=== PATIENT | female | born 1960 | race Caucasian/White ===

== ENCOUNTER 2023-07-23 13:08 | Outpatient (AMB) | payer MEDICARE, MEDICAID, SELFPAY ==
[2023-07-23 13:27] VITALS: BP 134/64; PULSE 78; RESP 16; O2SAT 97
--- NOTE | 2023-07-23 13:27 | A.OFFVIS_ITS ---
Intake Vital Signs 07/23/23 13:27 Weight 143 lb BP 134/64 Blood Pressure Location Lt brachial Position Sitting Respiration 16 Pulse 78 Pulse Source Pulse Oximeter Pulse Oximetry (%) 97 Oxygen Delivery Method Room Air Intake Visit Reasons: LEFT LUMBAR RADICULOPATHY/confirmed Allergies Penicillins Adverse Reaction (Intermediate, Verified 07/23/23 13:21) Anaphylaxis HPI HPI Comments History of Present Illness Details Linda is a very pleasant 62-year-old female who presents the office today for evaluation and management of her chronic lower back pain. Patient reports that she has been suffering with this pain for greater than 20 years. She denies inciting injury and attributes the pain to multiple falls and accidents when she was younger. Patient complaining of 8/10 lower back pain with radiation down the left leg to the left foot. She does endorse some numbness and tingling of the left lateral leg. She has tried nonsteroidal anti-inflammatory medications, muscle relaxers and home exercise program without relief. She is currently on chronic opioid management through her primary care doctor which does not relieve her pain. Patient denies red flag symptoms including new loss of bowel, bladder or saddle anesthesia In terms of muscle damage condition is described as hot, burning, tingling, shocking, numb, pins and needles. Pain is negatively impacting patient's enjoyment life, general activity, mood, normal work, sleep and walking. Referral note from patient's primary care doctor reports that she recently was evaluated by a neurosurgeon with completion of an EMG, she was offered decompression surgery and declined. This is discussed with patient today and she reports that surgery was never offered to her. Patient had an MRI approximately 2 months ago, results of been requested. Review of Systems Const All systems reviewed & are unremarkable except as noted in HPI and below Physical Exam Vital Signs: Last Vital Signs Pulse 78 07/23/23 13:27 Resp 16 07/23/23 13:27 BP 134/64 07/23/23 13:27 Pulse Ox 97 07/23/23 13:27 Oxygen Delivery Method Room Air 07/23/23 13:27 General: awake, alert, oriented. Answers questions appropriately. Fully engaged in examination. Skin: warm, dry, intact HEENT: Normocephalic. Hearing intact. Cardiac: External chest normal in appearance. Respiratory: No cough, audible wheezing or stridor. Abdomen: without gross distension. MS: No obvious swelling or deformities. Able to stand on bilateral tiptoes and bilateral heels.? Able to transition from sit to stand unassisted. Ambulates with bilaterally normal heel strike and toe off BLE strength 5/5 SLR with dorsiflexion + left Neurological: Oriented to person, place, time and situation. Thought process intact. No gait abnormalities appreciated. Psychiatric: Appropriate mood and affect. Good judgment and insight. Assessment & Plan Assessment & Plan (1) Facet arthritis of lumbar region: Code(s): M47.816 - Spondylosis without myelopathy or radiculopathy, lumbar region (2) Lumbar radiculopathy: Code(s): M54.16 - Radiculopathy, lumbar region Plan Linda is a very pleasant 62 year old female who presented to the office today for evaluation and management of her chronic left lower back pain. History, physical exam and provocative testing most consistent with lumbar radi culopathy. Discussed options for treatment including diagnostic interventional testing, epidural steroid injections, peripheral nerve stimulation with Sprint, RFA and more permanent neuromodulation. Patient has exhausted conservative therapy including muscle relaxers, nonsteroidal anti-inflammatory medications, home exercise program and prescription medications. Will schedule patient for fluoroscopy guided L5-S1 transforaminal epidural steroid injection. All questions and concerns have been answered and patient agrees with the plan. Follow up after injections and sooner if needed. Coding Level of Care Code New Pt Level 4 (00268) Diagnoses Facet arthritis of lumbar region M47.816 Lumbar radiculopathy M54.16
== END 2023-07-23 13:57 | disposition home or self-care (01) ==
PROVIDERS: PCP Student in an Organized Health Care Education/Training Program; Referring Provider Student in an Organized Health Care Education/Training Program; Visit Provider Registered Nurse Emergency
DX: M47.816 Spondylosis without myelopathy or radiculopathy, lumbar region (principal); M54.16 Radiculopathy, lumbar region
CPT/HCPCS: 99204

== ENCOUNTER → 2023-07-23 13:08 | Outpatient (BNVA) | payer MEDICARE, SELFPAY | PROVIDERS: PCP Student in an Organized Health Care Education/Training Program; Referring Provider Student in an Organized Health Care Education/Training Program; Visit Provider Registered Nurse Emergency | DX: M47.816 Spondylosis without myelopathy or radiculopathy, lumbar region (principal); M54.16 Radiculopathy, lumbar region | CPT/HCPCS: 99202 ==

== ENCOUNTER 2023-08-27 06:07 | Outpatient (REF) | payer MEDICARE, MEDICAID, SELFPAY ==
--- NOTE | ~2023-08-27 | FL_ITS ---
EXAMINATION: XR FLUOROSCOPY WITH IMAGES CLINICAL INFORMATION: Radiculopathy, lumbar region. COMPARISON: None available. TECHNIQUE: Fluoroscopy Supervised By: Dr. Denny Pacheco. Fluoroscopy Time: 0.3 minutes. Cumulative Dose: 3.13 mGy. DAP: 0.0544 Gycm2. Images: 2. FINDINGS: Images demonstrate needle placement and contrast injection adjacent to the left lateral lower lumbar spine FL/FL guidance in treatment room IMPRESSION: Fluoroscopic guidance for pain management procedure.
== END 2023-08-27 06:08 | disposition home or self-care (01) ==
LOC: CF 06:07
PROVIDERS: Visit Provider Anesthesiology
DX: M47.26 Other spondylosis with radiculopathy, lumbar region (principal)
CPT/HCPCS: 64483; J3301; Q9967

== ENCOUNTER 2023-08-27 10:27 | Outpatient (AMB) | payer MEDICARE, MEDICAID, SELFPAY ==
[2023-08-27 10:42] VITALS: BP 136/86; PULSE 84; RESP 16; O2SAT 99
--- NOTE | 2023-08-27 10:42 | MHC.OFFVIS ---
Intake Vital Signs 08/27/23 10:42 08/27/23 12:17 Weight 143 lb 143 lb BP 136/86 140/88 H Blood Pressure Location Lt brachial Lt brachial Position Sitting Sitting Respiration 16 16 Pulse 84 80 Pulse Source Pulse Oximeter Pulse Oximeter Pulse Oximetry (%) 99 98 Oxygen Delivery Method Room Air Room Air Comment Pre-op Post-Op Intake Visit Reasons: LEFT L5, S1 TFESI Allergies Penicillins Adverse Reaction (Intermediate, Verified 07/23/23 13:21) Anaphylaxis Physical Exam Vital Signs: Last Vital Signs Pulse 84 08/27/23 10:42 Resp 16 08/27/23 10:42 BP 136/86 08/27/23 10:42 Pulse Ox 99 08/27/23 10:42 Oxygen Delivery Method Room Air 08/27/23 10:42 Assessment & Plan Assessment & Plan (1) Facet arthritis of lumbar region: Code(s): M47.816 - Spondylosis without myelopathy or radiculopathy, lumbar region (2) Lumbar radiculopathy: Code(s): M54.16 - Radiculopathy, lumbar region Plan: Transforaminal epidural steroid injection L5-S1 on the left. THE PATIENT CAME TO THE OPERATING ROOM AFTER OBTAINING INFORMED CONSENT. THE RISKS OF THE PROCEDURE WERE DELINEATED THE RISK OF BLEEDING INFECTION PERIPHERAL NERVE DAMAGE EPIDURAL HEMATOMA EPIDURAL ABSCESS AND OTHER UNSPECIFIED RISKS. THE PATIENT WAS POSITIONED PRONE ON THE OPERATING TABLE . TIME-OUT WAS OBTAINED DELINEATING CORRECT SIDE AND SITE OF THE PROCEDURE, PATIENT NAME AND DATE OF , NEED OF THE ANTIBIOTIC, RISK OF FIRE. The PATIENT PARTICIPATED IN THE TIME OUT PROCEDURE. LUMBAR AREA OF THE PATIENT WAS PREPPED WITH CHLORAPREP AND DRAPED WITH STERILE DRAPES, STERILELY DRAPED C-ARM WAS BROUGHT OVER THE OPERATING FIELD AND SQ PICTURE OF L5 VERTEBRA WAS DELINEATED ON THE SCREEN. C-ARM WAS TILTED 20? CEPHALAD AND 25 DEGREES TO THE RIGHT TO DEMONSTRATE THE MOST PROMINENT IMAGE OF THE pedicle on THE left. 2 mm below the lowest pedicle point was chosen as site of the injection and its projection to the skin was infiltrated with lidocaine 1% 2 mls.. 22 GAUGE 5 IN SPINAL NEEDLE WAS INSERTED THROUGH THE SKIN AND STARTED TO ADVANCE TO THE FORAMINA IN ANTERIOR POSTERIOR, OBLIQUE AND LATERAL VIEWS IN TUNNEL VISION FASHION. WHEN ON LATERAL VIEW THE NEEDLE ENTERED THE MOST POSTERIOR AND INFERIOR PORTION OF THE FORAMINA INJECTION OF THE CONTRAST PERFORMED DELINEATING ANTERIOR EPIDURAL SPREAD OF THE CONTRAST. AFTER THAT TREATMENT SOLUTION CONTAINING 3 ML OF PRESERVATIVE-FREE LIDOCAINE 1% MIXED WITH KENALOG 40 MG WAS INJECTED INTO THE NEEDLE. UPON COMPLETION OF THE INJECTION THE NEEDLE WAS REMOVED AND STERILE DRESSING WAS APPLIED. PATIENT TOLERATED PROCEDURE WELL SHE WAS AWAKEN TAKEN OUTSIDE OF THE OPERATING ROOM TO PACU WHERE SHE RECOVERED UNEVENTFULLY. SHE WENT HOME WITHOUT IMMEDIATE COMPLICATIONS. Plan Linda is a very pleasant 62 year old female who presented to the office today for evaluation and management of her chronic left lower back pain. History, physical exam and provocative testing most consistent with lumbar radiculopathy. Discussed options for treatment including diagnostic interventional testing, epidural steroid injections, peripheral nerve stimulation with Sprint, RFA and more permanent neuromodulation. Patient has exhausted conservative therapy including muscle relaxers, nonsteroidal anti-inflammatory medications, home exercise program and prescription medications. Will schedule patient for fluoroscopy guided L5-S1 transforaminal epidural steroid injection. All questions and concerns have been answered and patient agrees with the plan. Follow up after injections and sooner if needed. Coding Level of Care Code Procedure Only Diagnoses Facet arthritis of lumbar region M47.816 Lumbar radiculopathy M54.16
[2023-08-27 12:17] VITALS: BP 140/88; PULSE 80; RESP 16; O2SAT 98
== END 2023-08-27 11:43 | disposition home or self-care (01) ==
LOC: HO.PMCPRC 10:27
PROVIDERS: PCP Student in an Organized Health Care Education/Training Program; Visit Provider Anesthesiology
DX: M47.816 Spondylosis without myelopathy or radiculopathy, lumbar region (principal); M54.16 Radiculopathy, lumbar region
CPT/HCPCS: 64483

== ENCOUNTER 2023-09-24 13:30 | Outpatient (AMB) | payer MEDICARE, MEDICAID, SELFPAY ==
--- NOTE | 2023-09-24 13:39 | A.OFFVIS_ITS ---
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 Pacheco. Patient reports no pain relief since procedure. She reports injection was painful and she is no longer wishes to proceed with injections. Patient is experiencing moderate to severe radiculopathy in her left buttock and shooting down into her left thigh, lateral calf and top and lateral aspects of her foot with associates parasthesias, numbness, burning and tinglings in her left thigh and toes. Reports weakness in her left lower extremity with walking and increased pain with bending and prolonged sitting during driving. The back pain is function and mobility limiting and has been resistant to conservative treatments, including PT, NSAIDs, muscle relaxants, opioid medication (67.5 MME/Day), gabapentin, heat therapy, and home exercise program. Patient denies previous Neurosurgical evaluation. I will refer patient to our [facility] for further evaluation of spinal-stenosis related pain. Denies any recent cough, cold, infection, fever, any significant changes in her medical history, medications or recent hospitalizations. Denies any bladder or maria e incontinence or saddle anesthesia. Past Procedures: 08/27/23: Left L5-S1 TFESI- no pain reli ef PRIOR Sharyn H. PEAR PICKER: Linda is a very pleasant 62-year-old female who presents the office today for evaluation and management of her chronic lower back pain. Patient reports that she has been suffering with this pain for greater than 20 years. She denies inciting injury and attributes the pain to multiple falls and accidents when she was younger. Patient complaining of 8/10 lower back pain with radiation down the left leg to the left foot. She does endorse some numbness and tingling of the left lateral leg. She has tried nonsteroidal anti-inflammatory medications, muscle relaxers and home exercise program without relief. She is currently on chronic opioid management through her primary care doctor which does not relieve her pain. Patient denies red flag symptoms including new loss of bowel, bladder or saddle anesthesia In terms of muscle damage condition is described as hot, burning, tingling, shocking, numb, pins and needles. Pain is negatively impacting patient's enjoyment life, general activity, mood, normal work, sleep and walking. Referral note from patient's primary care doctor reports that she recently was evaluated by a neurosurgeon with completion of an EMG, she was offered decompression surgery and declined. This is discussed with patient today and she reports that surgery was never offered to her. Patient had an MRI approximately 2 months ago, results of been requested. Review of Systems Const All systems reviewed & are unremarkable except as noted in HPI and below Physical Exam Vital Signs: Last Vital Signs Pulse 79 09/24/23 13:44 BP 170/82 H 09/24/23 13:44 Pulse Ox 96 09/24/23 13:44 Oxygen Delivery Method Room Air 09/24/23 13:44 BMI result Body Mass Index 20.8 General: Appears afebrile. Alert and oriented. Mood and affect appropriate. Tearful due to pain. Follows and participates in conversation appropriately. Respiratory effort is unlabored. No cough. Able to transition from sit to stand unassisted. Holds on to her family with walking. Reports using cane at home. Back/Spine/Pelvis Cervical Spine: cervical ROM normal and No Cervical spine tenderness Thoracic/Lumbar Spine: thoracic and lumbar spine normal to inspection, No Thoracic/lumbar spine scar(s), Lasegue's sign positive on the left and localized, pain with thoraco-lumbar ROM, paraspinal muscle tenderness, thoraco- lumbar ROM limited, No thoracic spinal tenderness, lumbar spinal tenderness and straight leg raise positive left at 40 degrees Pelvis: buttock tenderness on the left Sacroiliac joints: bilaterally tender to palpation Results Reviewed Results Reviewed: Assessment & Plan Assessment & Plan (1) Lumbar radiculopathy: Code(s): M54.16 - Radiculopathy, lumbar region (2) Lumbar spinal stenosis: Code(s): M48.061 - Spinal stenosis, lumbar region without neurogenic claudication (3) Facet arthritis of lumbar region: Code(s): M47.816 - Spondylosis without myelopathy or radiculopathy, lumbar region Plan Patient is status post left L5-S1 TFESI with no pain relief. She is experiencing spinal-stenosis and significant left sided radiculopathy for which I will refer her to our [facility] for further evaluation. Patient is aware to call if pain worsens or if she develops any red flag symptoms to seek emergency care. Patient denies any cauda equina syndrome symptoms at this time. Patient will trial Medrol Rustam to potentially obtain relief for radicular pain involving L4-L5 levels. Side effects and precautions were discussed with patient and her family. All questions were answered and the patient is in agreement of plan. Follow-up after Neurosurgical evaluation and sooner as needed. Orders: Referrals 2 Neurosurgery Referral M47.816 - Spondylosis without myelopathy or radiculopathy, lumbar region, M48.061 - Spinal stenosis, lumbar region without neurogenic claudication, M54.16 - Radiculopathy, lumbar region Medications: New 2 methylprednisolone (Medrol (Rustam)) PO PER PKG DIR 21 ea 0RF pain M48.061 - Spinal stenosis, lumbar region without neurogenic claudication, M54.16 - Radiculopathy, lumbar region Coding Level of Care Code Est Pt Level 4 (42837) Diagnoses Lumbar radiculopathy M54.16 Lumbar spinal stenosis M48.061 Facet arthritis of lumbar region M47.816
[2023-09-24 13:44] VITALS: BP 170/82; PULSE 79; O2SAT 96; BMI 20.8
== END 2023-09-24 14:14 | disposition home or self-care (01) ==
PROVIDERS: PCP Student in an Organized Health Care Education/Training Program; Visit Provider Nurse Practitioner Family
DX: M54.16 Radiculopathy, lumbar region (principal); M48.061 Spinal stenosis, lumbar region without neurogenic claudication; M47.816 Spondylosis without myelopathy or radiculopathy, lumbar region
CPT/HCPCS: 99214

== ENCOUNTER → 2023-09-24 13:30 | Outpatient (BNVA) | payer MEDICARE, MEDICAID, SELFPAY | PROVIDERS: PCP Student in an Organized Health Care Education/Training Program; Visit Provider Nurse Practitioner Family | DX: M47.26 Other spondylosis with radiculopathy, lumbar region (principal); M48.061 Spinal stenosis, lumbar region without neurogenic claudication | CPT/HCPCS: 99212 ==

== ENCOUNTER 2024-01-23 13:35 | Outpatient (AMB) | payer MEDICARE, MEDICAID, SELFPAY ==
--- NOTE | 2024-01-23 13:37 | A.SPINEOV_ITS ---
Intake Visit Reasons: Lumbar radiculopathy Intake Note: Ms. Serna is here today c/o back pain. Occupational Health Technician Required: No Allergies Penicillins Adverse Reaction (Intermediate, Verified 01/23/24 13:44) Anaphylaxis Assessment & Plan Assessment & Plan (1) Peripheral neuropathy: Code(s): G62.9 - Polyneuropathy, unspecified Category: Medical Plan Dear Precious, Thank you for referring Mrs Serna to our office today. She is 63-year-old female who has had 3 years of left leg pain which goes down into her left buttock, left lateral thigh, into her lateral calf and the top of her foot. It is associated with tingling and numbness. There is also a component of pain that can go into her left knee as well. I was able to get access to the [place] records. She saw Onel FRANCISCO, and Dr. Coombs last year, underwent MRI and subsequent EMG showing that the patient had peripheral neuropathy in the left leg sensory greater than axonal component. At that time no surgery is recommended. She had been seen in your office, underwent an L5-S1 nerve block with no significant improvement. She came today in follow-up to see us with an MRI of the lumbar spine. Her pain is aggravated with standing and activity. It does not go away necessarily though when she sits down. She takes gabapentin, ibuprofen, trazodone, oxycodone, amitriptyline and smokes daily marijuana to help with the pain. PMH: She really does not see doctors regularly so she does not report any medical history. She does see a [facility] in [place]. Social hx: She smokes about a pack a day, smokes marijuana Medications: Daily but no alcohol ibuprofen, gabapentin, trazodone, amitriptyline and oxycodone Allergies: Penicillin Physical exam: Awake alert oriented, forgetful at times details of certain office visits are difficult for her to remember. She did not remember having an injection here at the hospital earlier this year. She did remember having an EMG done last year. Her gross motor examination is normal. She has absent reflexes at the Achilles, 3+ reflexes at the patella. Gait is slightly antalgic. Imaging review: There is a lumbar MRI done at [facility] in December of 2023 showing right L3-4 disc bulge causing compression of the right L4 nerve root and narrowing of the lateral recesses at L4-5. Impression: 63-year-old female presents with left leg pain in a multi distribution going down her leg into her foot as well as into her knee. She saw Dr. Pantoja is off his last year, an EMG was done because of lack of significant findings on the MRI and this showed that she has a peripheral neuropathy. The sensory component greater than axonal. This is consistent with the MRI imaging which is underwhelming with no significant compression seen on the left. She should follow up with a neurologist. There is no role for surgery. I am not sure if this is something that can be treated with spinal cord stimulator. I would defer that to you and . Thank you for allowing us to care for your patient. The total time spent with this visit with this patient was 45 minutes reviewing history, physical exam, lumbar MRI imaging review, and implementation of treatment plan or further diagnostic testing Ebenezer Goetz MD,PhD [facility] Coding Level of Care Code New Pt Level 4 (81790) Diagnoses Peripheral neuropathy G62.9
== END 2024-01-23 14:23 | disposition home or self-care (01) ==
PROVIDERS: PCP Student in an Organized Health Care Education/Training Program; Referring Provider Nurse Practitioner Family; Visit Provider Physician Assistant
DX: G62.9 Polyneuropathy, unspecified (principal)
CPT/HCPCS: 99204; 99214

== ENCOUNTER → 2024-01-23 13:35 | Outpatient (BNVA) | payer MEDICARE, MEDICAID, SELFPAY | PROVIDERS: PCP Student in an Organized Health Care Education/Training Program; Visit Provider Physician Assistant | DX: G62.9 Polyneuropathy, unspecified (principal) | CPT/HCPCS: 99202 ==

== ENCOUNTER 2024-01-29 13:11 | Outpatient (AMB) | payer MEDICARE, MEDICAID, SELFPAY ==
--- NOTE | 2024-01-29 13:13 | MHC.OFFVIS ---
Vital Signs 01/29/24 13:21 Height 5 ft 8 in Weight 132 lb 4 oz BMI 20.1 BP 130/62 Blood Pressure Location Lt brachial Position Sitting Respiration 14 Pulse 88 Pulse Source Pulse Oximeter Pulse Oximetry (%) 98 Oxygen Delivery Method Room Air Intake Visit Reasons: SCS discussion Allergies Penicillins Adverse Reaction (Intermediate, Verified 01/23/24 13:44) Anaphylaxis HPI Comments Details: Linda presents back to the office today for follow-up to discuss spinal cord stimulation. Since last visit patient was evaluated by neuro spine. Determined to not be a candidate for surgical intervention and was referred back here to discuss spinal cord stimulator. Pain today is rated as a 10/10 lower back and down her left leg to the toes. Patient continues with gabapentin, oxycodone and THC without improvement of her pain. She has exhausted conservative therapy including PT, nonsteroidal anti-inflammatory medication, muscle relaxants, prescription medications, heat and home exercise program. She denies red flag symptoms including new loss of bowel, bladder or saddle anesthesia. Prior: Patient presents today to assess response to Left L5-S1 TFESI on 08/27/[address] Pacheco. Patient reports no pain relief since procedure. She reports injection was painful and she is no longer wishes to proceed with injections. Patient is experiencing moderate to severe radiculopathy in her left buttock and shooting down into her left thigh, lateral calf and top and lateral aspects of her foot with associates parasthesias, numbness, burning and tinglings in her left thigh and toes. Reports weakness in her left lower extremity with walking and increased pain with bending and prolonged sitting during driving. The back pain is function and mobility limiting and has been resistant to conservative treatments, including PT, NSAIDs, muscle relaxants, opioid medication (67.5 MME/Day), gabapentin, heat therapy, and home exercise program. Patient denies previous Neurosurgical evaluation. I will refer patient to our [facility] [place] [place] for further evaluation of spinal-stenosis related pain. Denies any recent cough, cold, infection, fever, any significant changes in her medical history, medications or recent hospitalizations. Denies any bladder or maria e incontinence or saddle anesthesia. Past Procedures: 08/27/23: Left L5-S1 TFESI- no pain relief PRIOR Sharyn Dill FOREST EXAMINER: Linda is a very pleasant 62-year-old female who presents the office today for evaluation and management of her chronic lower back pain. Patient reports that she has been suffering with this pain for greater than 20 years. She denies inciting injury and attributes the pain to multiple falls and accidents when she was younger. Patient complaining of 8/10 lower back pain with radiation down the left leg to the left foot. She does endorse some numbness and tingling of the left lateral leg. She has tried nonsteroidal anti-inflammatory medications, muscle relaxers and home exercise program without relief. She is currently on chronic opioid management through her primary care doctor which does not relieve her pain. Patient denies red flag symptoms including new loss of bowel, bladder or saddle anesthesia In terms of muscle damage condition is described as hot, burning, tingling, shocking, numb, pins and needles. Pain is negatively impacting patient's enjoyment life, general activity, mood, normal work, sleep and walking. Referral note from patient's primary care doctor reports that she recently was evaluated by a neurosurgeon with completion of an EMG, she was offered decompression surgery and declined. This is discussed with patient today and she reports that surgery was never offered to her. Patient had an MRI approximately 2 months ago, results of been requested. Review of Systems Const All systems reviewed & are unremarkable except as noted in HPI and below Physical Exam Vital Signs: Last Vital Signs Pulse 88 01/29/24 13:21 Resp 14 01/29/24 13:21 BP 130/62 01/29/24 13:21 Pulse Ox 98 01/29/24 13:21 Oxygen Delivery Method Room Air 01/29/24 13:21 BMI result Body Mass Index 20.1 General: awake, alert, oriented. Answers questions appropriately. Fully engaged in examination. Skin: warm, dry, intact HEENT: Normocephalic. Hearing intact. Cardiac: External chest normal in appearance. Respiratory: No cough, audible wheezing or stridor. Abdomen: without gross distension. MS: No obvious swelling or deformities. Able to transition from sit to stand unassisted. Ambulates with bilaterally normal heel strike and toe off BLE strength 5/5 Negative footdrop, negative clonus SLR with dorsiflexion positive on the left Neurological: Oriented to person, place, time and situation. Thought process intact. Psychiatric: Appropriate mood and affect. Good judgment and insight. Results Reviewed Results Reviewed: Assessment & Plan Assessment & Plan (1) Facet arthritis of lumbar region: Code(s): M47.816 - Spondylosis without myelopathy or radiculopathy, lumbar region Category: Medical (2) Lumbar radiculopathy: Code(s): M54.16 - Radiculopathy, lumbar region Category: Medical Plan Linda is a very pleasant 63 year old female who presented to the office today for follow-up to discuss spinal cord stimulation. Patient has exhausted conservative therapy including physical therapy, muscle relaxers, nonsteroidal anti-inflammatory medications, prescription medications, topical applications, home exercise program. Discussed at length the patient's diagnosis and treatment options including spinal cord stimulation trial/implant. She is aware that this would require a mental health evaluation prior to scheduling. Referral has been placed to [facility] for mental health evaluation Will schedule for fluoroscopy guided spinal cord stimulator trial with Nevro under sedation. All questions and concerns have been answered and patient agrees with the plan. Follow up after trial, sooner if needed. Coding Level of Care Code Est Pt Level 3 (57011) Diagnoses Facet arthritis of lumbar region M47.816 Lumbar radiculopathy M54.16
[2024-01-29 13:21] VITALS: BP 130/62; PULSE 88; RESP 14; O2SAT 98; BMI 20.1
== END 2024-01-29 13:33 | disposition home or self-care (01) ==
PROVIDERS: PCP Student in an Organized Health Care Education/Training Program; Visit Provider Registered Nurse Emergency
DX: M47.816 Spondylosis without myelopathy or radiculopathy, lumbar region (principal); M54.16 Radiculopathy, lumbar region; M48.061 Spinal stenosis, lumbar region without neurogenic claudication; G62.9 Polyneuropathy, unspecified; M54.9 Dorsalgia, unspecified
CPT/HCPCS: 99213

== ENCOUNTER → 2024-01-29 13:11 | Outpatient (BNVA) | payer MEDICARE, MEDICAID, SELFPAY | PROVIDERS: PCP Student in an Organized Health Care Education/Training Program; Visit Provider Registered Nurse Emergency | DX: M48.061 Spinal stenosis, lumbar region without neurogenic claudication (principal); M54.9 Dorsalgia, unspecified; G62.9 Polyneuropathy, unspecified; M47.816 Spondylosis without myelopathy or radiculopathy, lumbar region; M54.16 Radiculopathy, lumbar region | CPT/HCPCS: 99212 ==